=== PATIENT | male | born 1960 | race Caucasian/White ===

== ENCOUNTER 2017-11-28 20:55 | Emergency (ER) | payer OTHER ==
[~2017-11-28] VITALS: Ht 182.9 cm; Wt 86.2 kg
[2017-11-28] MEDS ORDERED: LEVE500T9 PO (21:13)
[2017-11-28] MEDS ORDERED: LOSA50TA21 PO (21:13)
[2017-11-28] MEDS ORDERED: ASPI-605 PO (21:13)
[2017-11-28] MEDS ORDERED: PROP20TA7 PO (21:13)
[2017-11-28] MEDS ORDERED: IV NORMAL SALINE 500 ML BAG IV ONE (21:15)
[2017-11-28] MEDS ORDERED: LORAZEPAM 2 MG/1 ML VIAL IV ONE ×2 (21:15→23:15)
[2017-11-28] MEDS ORDERED: LORAZEPAM 2 MG/1 ML VIAL ONE ×2 (21:16→23:14)
--- NOTE | 2017-11-28 21:18 | NUR ---
fAMILY AT BEDSIDE, RESPIRATIONS EVEN AND UNLABORED. NO ACUTE DISTRESS AT THIS TIME. PHLEBOTOMY AT BEDSIDE AT THIS TIME FOR BLOOD DRAW
[2017-11-28 21:38] LABS: BASOPHILS # (AUTO) 0.1 K/uL (0.0-8.0); BASOPHILS % (AUTO) 0.4 % (0.0-2.0); EOSINOPHILS # (AUTO) 0.1 K/uL (0.0-0.7); EOSINOPHILS % (AUTO) 0.5 % (0.0-7.0); HEMATOCRIT 50.4 % (36.7-47.1); HEMOGLOBIN 16.1 g/dL (12.5-16.3); LYMPHOCYTES # (AUTO) 2.1 K/uL (20.0-40.0); LYMPHOCYTES % (AUTO) 12.8 % (20.5-51.5); MEAN CORPUSCULAR HEMOGLOBIN 29.3 uug (23.8-33.4); MEAN CORPUSCULAR HGB CONC 32 g/dL (32.5-36.3); MEAN CORPUSCULAR VOLUME 91.9 fL (73.0-96.2); MONOCYTES # (AUTO) 0.4 K/uL (2.0-10.0); MONOCYTES % (AUTO) 2.3 % (0.0-11.0); NEUTROPHILS # (AUTO) 14.1 K/uL (1.8-8.9); PLATELET COUNT (AUTO) 328 K/uL (152-348); RED BLOOD CELL COUNT(AUTO) 5.49 MIL/uL (4.06-5.63); WHITE BLOOD COUNT (AUTO) 16.8 K/uL (3.6-10.2)
[2017-11-28 21:44] LABS: ALANINE AMINOTRANSFERASE 17 U/L (16-63); ALKALINE PHOSPHATASE 153 U/L (50-136); ASPARTATE AMINOTRANSFERASE 23 U/L (15-37); BILIRUBIN,DIRECT 0.1 mg/dL (0.0-0.2); BILIRUBIN,TOTAL 0.3 mg/dL (0.2-1.0); CHLORIDE 99 mmol/L (98-107); CREATININE 2.1 mg/dL (0.6-1.3); GLUCOSE 209 mg/dL (74-106); POTASSIUM 4.9 mmol/L (3.5-5.1); TOTAL PROTEIN, SERUM 8.9 g/dL (6.4-8.2); UREA NITROGEN, BLOOD 13 mg/dL (7-18); VALPROIC ACID < 3 ug/mL (50-100)
--- NOTE | 2017-11-28 21:52 | NUR ---
call from Simona from lab for critical lab value of CO2 10 Addendum: 11/28/17 at 2152 by CARROL call received from Simona at lab that CO2 is 10, JOELLEN ISRAEL notified
[2017-11-28 21:53] LABS: CARBON DIOXIDE 10 mmol/L (21-32)
--- NOTE | 2017-11-28 21:53 | NUR ---
pATIENT IN ct AT THIS TIME
[2017-11-28 21:56] LABS: ETHANOL < 3 MG/DL (0-0)
--- NOTE | 2017-11-28 22:07 | NUR ---
PATIENT BACK FROM CT. NO ACUTE DISTRESS NOTED. SEIZURE PRECAUTIONS IMPLEMENTED, SIDERAILS PADDED. PATIENT IN BED, RESPIRATIONS EVEN AND UNLABORED. NO CARDIOVASCULAR DISTRESS NOTED. VSS. SINUS [facility]ACH [facility] AT THIS TIME. WILL CONTINUE TO MONITOR PATIENT. NO EPISODE OF SEIZURE, NAUSE, VOMITING AT THIS TIME. PATIENT AROUSABLE TO VERBAL/TACTILE STIMULI.
[2017-11-28 22:11] LABS: BAND % (MANUAL) 13 % (0-10); LYMPHOCYTES % (MANUAL) 14 % (20-40); METAMYELOCYTES % 1 % (0-1); MONOCYTES % (MANUAL) 2 % (2-10); NEUTROPHILS % (MANUAL) 68 % (42-75)
[2017-11-28] MEDS ORDERED: DEXAMETHASONE SOD PHOSPHATE 4 MG INJ IV ONE (22:15)
[2017-11-28] MEDS ORDERED: DEXAMETHASONE SOD PHOSPHATE 10 MG INJ ONE (22:21)
--- NOTE | 2017-11-28 22:30 | NUR ---
pATIENT IN BED, VSS. NO ACUTE DISTRESS NOTED.
--- NOTE | 2017-11-28 23:06 | NUR ---
JOELLEN ISRAEL ON PHONE WITH [facility] FOR PATIENT TRASFER SETUP. PATIENT FOUND TO HAVE MILD SUBARACHNOID HEMORRHAGE ON HIS BRAIN CT. PATIENTS NOTIFIED OF THIS ISSUE BY ER .
[2017-11-28] MEDS ORDERED: HALOPERIDOL LACTATE 5 MG/1 ML VIAL ONE (23:18)
--- NOTE | 2017-11-28 23:26 | NUR ---
PATIENT BECAME NONCOOPERATIVE, ATTEMPTING TO GET OUT OF BED, PULL OUT IVS, AGITATED AT THIS TIME. PATIENT ASSISTED BACK TO BED, REORIENTATION PROVIDED. MEDICATION ADMINISTERED
--- NOTE | 2017-11-28 23:28 | NUR ---
JOELLEN MD ON PHONE WITH FIDE ISRAEL AT THIS TIME.
[2017-11-28] MEDS ORDERED: HALOPERIDOL LACTATE 5 MG/1 ML VIAL IV ONE (23:30)
--- NOTE | 2017-11-28 23:32 | NUR ---
FIDE ISRAEL, DR CORBIN TO SET UP TRANSPORTATION FOR THIS PATIENT. AUTHORIZATION #[id number]
--- NOTE | 2017-11-28 23:40 | NUR ---
PATIENT IN BED, NO ACUTE DISTRESS NOTED. RESPIRATIONS EVEN AND UNLABORED. VISITOR AT BEDSIDE.
[2017-11-28] MEDS ORDERED: AZITHROMYCIN IV 500 MG in IV DEXTROSE 5% 250 ML IV ONE (23:45)
[2017-11-28] MEDS ORDERED: CEFTRIAXONE 2 G in IV DEXTROSE 5% 100 ML IV ONE (23:45)
[2017-11-28] MEDS ORDERED: CEFTRIAXONE 1 G VIAL ONE (23:45)
[2017-11-29] MEDS ORDERED: AZITHROMYCIN 500 MG VIAL IV ONE (00:52)
--- NOTE | 2017-11-29 00:55 | NUR ---
[facility] remains in bed, [facility] patient respirations even and unlabored. no cardiopulmondary distress noted. VSS
--- NOTE | 2017-11-29 01:15 | NUR ---
Spoke with [place] [facility], patient to be transfered to [facility] due to availability of neurology at this [place]. Patient will go into Neuro ICU, Bed # 5110. Report number is [id number]. Accepting MD is Benito Duenas. ETA for patient merchandise pickup/receiving associate is [phone] by [facility].
--- NOTE | 2017-11-29 01:19 | NUR ---
Report given to Kacie Parra RN at [facility] Neuro ICU.
[2017-11-29] MEDS ORDERED: LORAZEPAM 2 MG/1 ML VIAL ONE (01:23)
[2017-11-29] MEDS ORDERED: LORAZEPAM 2 MG/1 ML VIAL IV ONE (01:30)
--- NOTE | 2017-11-29 01:45 | NUR ---
Patient in bed, no acute distress noted. VSS. Seizure precautions maintained, IV Antibiotics infusing at this time. patient awaiting transportation for [facility] transport. Respirations even and unlabored. Chest rise symmetrical on both sides. Diminished lung sounds at bilat bases per auscultation. SaO2 @ 98%. O2 ongoing via N/c @ 2lpm per ER MD instruction. . no change in LOC at this time. No cardiovascular distress noted. Patient currently @ HR 90, NSR on slasher tender. Will continue to monitor patient. VSS
[2017-11-29] MEDS ORDERED: HALOPERIDOL LACTATE 5 MG/1 ML VIAL ONE (01:52)
[2017-11-29] MEDS ORDERED: HALOPERIDOL LACTATE 5 MG/1 ML VIAL IV ONE (02:00)
--- NOTE | 2017-11-29 02:22 | NUR ---
[facility] UNIT #21, ALS TRANSPORT AT BEDSIDE FOR PATIENT CLEAN ROOM OPERATOR. REPORT, CHART,IMAGING, ALL BELONGINGS GIVEN TO ALS RN, Albertina HODGES. PATIENTS FAMILY NOTIFIED OF PATIENT TRANSFER TO [facility] , ROOM 5110. VSS AT TIME OF TRANSFER. TRANSFER CONSENT COMPLETE, IN CHART.
--- NOTE | 2017-11-29 02:38 | NUR ---
Patient Tranfers to outside Facility Physician:eBnito COX Location: [facility], ROOM 5110. [facility] ALS UNIT #21
== END 2017-11-29 02:45 | disposition short-term general hospital (02) ==
LOC: ER 20:55
DX: I60.9 Nontraumatic subarachnoid hemorrhage, unspecified (principal); G40.909 Epilepsy, unspecified, not intractable, without status epilepticus; I10 Essential (primary) hypertension; Z79.82 Long term (current) use of aspirin; Z79.899 Other long term (current) drug therapy
CPT/HCPCS: 36415; 70450; 71045; 80164; 85025; 85730; 93005; A4663; G0480; J0456; J0696; J1100; J1630; J2060; J3490; J7040